=== PATIENT | male | born 1945 | race Caucasian/White ===

== ENCOUNTER 2019-02-03 11:47 | Outpatient (CLI) | payer MEDICARE, OTHER ==
[~2019-02-03 11:47] MED LIST: Gadobenate Dimeglumine 529 MG/1 ML (20ML VIAL) ONE
--- NOTE | 2019-02-03 13:17 | MRI ---
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 TECHNIQUE: Multiplanar, multisequence pre and postcontrast enhanced MRI images of brain and IACs obt ained. FINDINGS: MRI images of brain demonstrate cortical atrophy and deep white matter ischemic changes. No evidence of acute intracranial masses, hemorrhages, or strokes seen. 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 No evidence of abnormal areas of intracranial enhancement seen. The internal auditory canals are unremarkable. No evidence of asymmetric enhancement seen. IMPRESSION: Deep white matter ischemic changes. Transcribed Date/Time: 02/03/2019 2:07 PM
== END 2019-02-03 11:48 | disposition home or self-care (01) ==
LOC: SCSMRI 11:47
PROVIDERS: ATTEND Specialist
DX: H90.5 Unspecified sensorineural hearing loss (principal); I67.82 Cerebral ischemia
CPT/HCPCS: 36415; 70553; 80048; A9577

== ENCOUNTER 2019-04-24 10:12 | Outpatient (CLI) | payer MEDICARE, OTHER ==
[~2019-04-24 10:12] MED LIST changes: -Gadobenate Dimeglumine 529 MG/1 ML (20ML VIAL) ONE; +Iopamidol 300 61% 100 ML VIAL FS ONE
--- NOTE | 2019-04-24 11:54 | CT ---
CT abdomen and pelvis with oral and IV contrast: HISTORY: Lower abdominal pain, back pain and groin pain. COMPARISON: None FINDINGS: There is a calcified granuloma in the right lung base. The patient is post cholecystectomy. The liver , pancreas, adrenal glands and right kidney are normal. A 17 mm cortical cyst is seen arising from the superior pole of the left kidney. The spleen measures 13.2 cm in length. No free air, free fluid or lymphadenopathy seen in the abdomen or pelvis. There are vascular calcifi cations without evidence of aneurysmal dilatation of the abdominal aorta. Degenerative changes are present in the spine. A normal-appearing appendix is present. Some of the small bowel loops in the left hemiabdomen are mil dly dilated. There is sigmoid diverticulosis without evidence of diverticulitis. A small fat-containing left inguinal hernia is present. IMPRESSION: 1. Left renal cyst 2. Borderline splenomegaly 3. Sigmoid diverticulosis. 4. Probable mild/partial small bowel obstruction. A small bowel series of be helpful.
== END 2019-04-24 10:13 | disposition home or self-care (01) ==
LOC: SCSCT 10:12
PROVIDERS: ATTEND Family Medicine
DX: R10.30 Lower abdominal pain, unspecified (principal); N28.1 Cyst of kidney, acquired; R16.1 Splenomegaly, not elsewhere classified; K57.30 Diverticulosis of large intestine without perforation or abscess without bleeding
CPT/HCPCS: 74177; Q9967

== ENCOUNTER 2019-04-25 07:21 | Outpatient (CLI) | payer MEDICARE, OTHER ==
--- NOTE | 2019-04-25 07:53 | ULT ---
Splenic sonogram HISTORY: Splenomegaly. FINDINGS: Spleen has a homogeneous echotexture. It measures 12.6 cm length by 6.0 cm width by 6.2 cm depth. No free fluid in the left upper quadrant. IMPRESSION: Mild splenomegaly. No focal abnormalities are demonstrated.
== END 2019-04-25 07:22 | disposition home or self-care (01) ==
LOC: SCSULT 07:21
PROVIDERS: ATTEND Family Medicine
DX: R16.1 Splenomegaly, not elsewhere classified (principal)
CPT/HCPCS: 74018; 76705

== ENCOUNTER 2019-04-25 08:47 | Outpatient (CLI) | payer MEDICARE, OTHER ==
--- NOTE | 2019-04-25 10:25 | RAD ---
XR Abdomen 1 View/KUB 1 view abdomen series CLINICAL INDICATION: Lower abdominal pain, partial obstruction FINDINGS: Lung basesreveal mild volume loss. No free air. Moderate retained fecal material is seen within colon. There is contrast throughout the course of the colon, which demonstrates interval passage from previo us day CT exam No acute osseous pathology. IMPRESSION: Interval passage of contrast to the level of the distal colon. Therefore, no persisting f indings to indicate bowel obstruction.
== END 2019-04-25 08:48 | disposition home or self-care (01) ==
LOC: RAD 08:47
PROVIDERS: ATTEND Family Medicine
DX: K56.600 Partial intestinal obstruction, unspecified as to cause (principal)
CPT/HCPCS: 74018

== ENCOUNTER 2019-05-22 07:39 | Outpatient (CLI) | payer MEDICARE, OTHER ==
[2019-05-22] MEDS ORDERED: Gadobenate Dimeglumine 529 MG/1 ML (20ML VIAL) ONE (09:00)
--- NOTE | 2019-05-22 10:04 | MRI ---
MRI LUMBAR SPINE WITH AND WITHOUT CONTRAST: DATE: 05/22/2019 HISTORY: 73-year-old male with low back pain and lumbosacral radiculopathy. TECHNIQUE: Multiple sequences obtained in axial and sagittal planes, pre and post IV injection of gadolinium-bas ed contrast agent. FINDINGS: For the purposes of this report, it will be assumed that there are 5 lumbar-type vertebrae. Vertebral body heights are maintained. Alignment is normal. Disc spaces are maintained. Bone marrow signal is normal. There is no evidence o f abnormal enhancement or mass involving the visualized portions of the intramedullary, extramedullary-intradural, extradural, intraosseous, or perivertebral, spaces. Conus medullaris termi nates at L1-2. The cauda equina is arranged in a symmetrical, normal distribution throughout the thecal sac. T12-L1:Normal L1-2:Normal L2-3:Normal L3-4:Moderate left facet DJD. Mild right facet DJD. Mild to moderate left neural foraminal stenosis. No right neural foraminal stenosis. No central stenosis. L4-5:Moderate bilateral neural foraminal stenosis. Mild bilateral facet DJD. No central stenosis. L5-S1:Mild to moderate right facet DJD. Mild left facet DJD. Mild bilateral neural foraminal stenosis . No central stenosis. IMPRESSION: 1) no central spinal canal stenosis and no high-grade degenerative disc disease, at any level. 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 Moderate on the left at L3-4. 3) neural foraminal stenosis at several levels, mostly low-grade.
== END 2019-05-22 07:40 | disposition home or self-care (01) ==
LOC: SCSMRI 07:39
PROVIDERS: ATTEND Family Medicine
DX: M47.27 Other spondylosis with radiculopathy, lumbosacral region (principal); M47.816 Spondylosis without myelopathy or radiculopathy, lumbar region; M48.061 Spinal stenosis, lumbar region without neurogenic claudication; M48.07 Spinal stenosis, lumbosacral region
CPT/HCPCS: 72158; 82565

== ENCOUNTER 2019-07-22 07:40 | Outpatient (CLI) | payer MEDICARE, OTHER ==
[2019-07-22 08:20] LABS: Estimated GFR-MDRD - POC Greater than 90
--- NOTE | 2019-07-22 09:38 | CT ---
CT ANGIOGRAM HEAD CT ANGIOGRAM NECK: DATE: 07/22/2019. COMPARISON: None. HISTORY: Random spells of altered awareness, transient alteration of awareness. TECHNIQUE: Axial CT imaging obtained at 5 mm intervals from vertex through skull base without contrast. Then, ax ial CT imaging at 1.5 mm intervals from the lung apices through the vertex with IV contrast using CT angiogram protocol. Coronal and sagittal 3-D reformatted imaging obtained. FINDINGS: Noncontrast enhanced head CT demonstrates no intracranial hemorrhage, midline shift, mass effect, or ventricular enlargement. Periventricular and deep white matter hypodensity noted, evidence of small vessel disease. Imaged paranasal sinuses and mastoid air cells are well aerated. No acute osseous abnormality. The imaged lung apices demonstrate increased linear interstitial density bilaterally, right greater t saini left. Coronary arterial calcification is noted. There is mild atherosclerotic calcification of the aortic arch and the visualized descending thoracic aorta. The retroantral fat, parapharyngeal fat, parotid glands, and submandibular glands appear grossly unre markable bilaterally. The thyroid gland, hyoid bone, epiglottis and preepiglottic fat, and level of the glottis appear jesus sly unremarkable. The origin of the innominate artery, left subclavian artery, left common carotid artery, right subcla vian artery, and right common carotid artery demonstrate no hemodynamically significant stenosis. The vertebral artery is patent bilaterally. The right vertebral artery is dominant. The proximal aspe ct of the left vertebral artery is partially obscured by venous contrast. No hemodynamically significant stenosis is seen involving either common carotid artery on the basis o f NASCET criteria. There is calcified plaque at the origin of the right internal carotid artery causing approximately 40% stenosis on the basis of NASCET criteria. There is a patent slightly deformed arterial stent within the proximal aspect of the left internal ca rotid artery with prominent surrounding partially calcified plaque. There is intrastent stenosis, best seen on axial image 147, estimated in the 60% range on the basis of NASCET criteria. The basilar artery is patent. There appears to be a origin of the right posterior cerebral olu ry. No high-grade stenosis, vascular occlusion, or saccular aneurysm is seen involving the posterior circulation. The A1 segment and M1 segment is patent bilaterally. The MCA bifurcation and the ICA bifurcation is u nremarkable bilaterally. Distal MCA and LUCIEN branches appear intact. No saccular aneurysm, central arterial occlusion, or high-grade stenosis is seen involving the anterior circulation on either side. Review of the osseous structures demonstrates no worrisome lytic or blastic bone lesion. Anterior discectomy and fusion hardware is noted within the lower cervical spine. There is multilevel cervical spine facet and uncovertebral osteophyte formation. No lymphadenopathy is noted within the neck. IMPRESSION: Unremarkable noncontrast enhanced head CT. 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 Additional incidental findings are noted, including coronary arterial calcification. Transcribed Date/Time: 07/22/2019 9:59 AM
== END 2019-07-22 07:41 | disposition home or self-care (01) ==
LOC: TBSIIMAG 07:40
DX: R40.4 Transient alteration of awareness (principal); I65.23 Occlusion and stenosis of bilateral carotid arteries; I25.10 Atherosclerotic heart disease of native coronary artery without angina pectoris
CPT/HCPCS: 70496; 70498; 82565

== ENCOUNTER 2019-10-14 16:48 | Outpatient (CLI) | payer MEDICARE, OTHER ==
--- NOTE | 2019-10-14 17:11 | RAD ---
Exam: XR Shoulder Rt 3 View STANDARD HISTORY: Acute pain right shoulder. Fall 3 days ago. COMPARISON: None FINDINGS: There is mild acromioclavicular joint osteoarthritis. Postsurgical changes lower cervical spine are seen. Mild degenerative changes are seen in the visuali zed thoracic as well as cervical spine. No acute fracture, dislocation, or other acute osseous abnormality is identified. Vascular calcifications are seen in the thoracic aorta IMPRESSION: No acute osseous abnormality is identified.
== END 2019-10-14 16:49 | disposition home or self-care (01) ==
LOC: SCSRAD 16:48
PROVIDERS: ATTEND Family Medicine
DX: M25.511 Pain in right shoulder (principal)

== ENCOUNTER 2019-12-19 09:22 | Outpatient (CLI) | payer MEDICARE, OTHER ==
--- NOTE | 2019-12-19 14:57 | NM ---
NUCLEAR MEDICINE BRAIN IMAGING: Date: 12/19/2019 HISTORY: Transient alteration of awareness. TECHNIQUE: A DaTscan with axial tomographic measures of the brain obtained 3 hours following the intravenous adm inistration of 4.5 mCi Iodine-123 Ioflupane. The patient was pretreated with 130 mg of potassium iodi de orally 1 hour prior to the injection. FINDINGS: There is mild defect in the left posterior putamen. The right striatum appears normal. 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 POS: [facility]
== END 2019-12-19 09:23 | disposition home or self-care (01) ==
LOC: NM 09:22
PROVIDERS: ATTEND Psychiatry & Neurology Neurology
DX: R40.4 Transient alteration of awareness (principal); G25.9 Extrapyramidal and movement disorder, unspecified
CPT/HCPCS: 78803; A9584

== ENCOUNTER 2021-03-29 10:20 | Outpatient (CLI) | payer MEDICARE, OTHER | END 2021-03-29 10:21 | disposition home or self-care (01) | LOC: SCSMRI 10:20 | PROVIDERS: ATTEND Orthopaedic Surgery | DX: S46.011A Strain of muscle(s) and tendon(s) of the rotator cuff of right shoulder, initial encounter (principal); M19.011 Primary osteoarthritis, right shoulder ==

== ENCOUNTER 2021-05-09 11:15 | Inpatient (IN) | payer MEDICARE, OTHER ==
[2021-05-12] MEDS ORDERED: Tranexamic Acid 1,000 MG/10 ML VIAL ONE (05:56)
[2021-05-12] MEDS ORDERED: Sodium Chloride 0.9% 100 ML ONE (05:56)
[2021-05-12] MEDS ORDERED: Vancomycin 1.5 GRAM/300 ML BAG 1.5 GM in Premix Bag 1 BAG IVPB SCH (06:00)
[2021-05-12] MEDS ORDERED: Fentanyl 100 MCG/2 ML VIAL ONE ×2 (06:27→07:06)
[2021-05-12] MEDS ORDERED: Lidocaine 2% Jelly 5 ML TUBE ONE (06:27)
[2021-05-12] MEDS ORDERED: Midazolam HCl 2 mg/2 ml Vial ONE (07:06)
[2021-05-12] MEDS ORDERED: Ropivacaine 0.5% HCl/PF (150 MG/30 ML VIAL) ONE (07:42)
[2021-05-12] MEDS ORDERED: Ondansetron PF 4 MG/2 ML Vial ONE (07:42)
[2021-05-12] MEDS ORDERED: Glycopyrrolate 0.2 MG/ML 5 ML SYRINGE ONE (07:42)
[2021-05-12] MEDS ORDERED: Ropivacaine 2% HCl/PF (20 MG/10 ML VIAL) ONE (07:42)
[2021-05-12] MEDS ORDERED: Rocuronium Bromide 10 MG/ML (10ML VIAL) ONE (07:42)
[2021-05-12] MEDS ORDERED: PROPOFOL 200 MG/20 ML VIAL ONE (07:42)
[2021-05-12] MEDS ORDERED: ePHEDrine 50 MG/ML VIAL ONE (07:42)
[2021-05-12] MEDS ORDERED: PHENYLEPHRINE-NS 100 MCG/ML 10 ML SYRINGE ONE (07:42)
[2021-05-12] MEDS ORDERED: Phenylephrine 10 MG/ML VIAL ONE (08:00)
[2021-05-12] MEDS ORDERED: HYDROcodone/Acetaminophen 5/325 mg Tablet PO PRN ×2 (08:15)
[2021-05-12] MEDS ORDERED: traMADol HCl 50 MG TAB PO PRN ×4 (08:15→10:22)
[2021-05-12] MEDS ORDERED: Ondansetron PF 4 MG/2 ML Vial IVP PRN ×2 (08:15→10:22)
[2021-05-12] MEDS ORDERED: Promethazine HCl 25 MG/ML VIAL IM PRN ×2 (08:15→11:46)
[2021-05-12] MEDS ORDERED: Ropivacaine 0.2% 550 ML 550 ML NERVE BLCK SCH (08:15)
[2021-05-12] MEDS ORDERED: Zolpidem Tartrate 5 MG TAB PO PRN ×2 (08:15→10:22)
[2021-05-12] MEDS ORDERED: Bisacodyl 10 MG SUPP PR PRN (10:22)
[2021-05-12] MEDS ORDERED: Methocarbamol 1 GM/10 ML VIAL SLOW IVP PRN (10:22)
[2021-05-12] MEDS ORDERED: Milk Of Magnesia 30 ML UDCUP PO PRN (10:22)
[2021-05-12] MEDS ORDERED: HYDROcodone/Acetaminophen 10/325 mg Tablet PO PRN ×2 (10:22)
[2021-05-12] MEDS ORDERED: Methocarbamol 500 MG TAB PO PRN (10:22)
[2021-05-12] MEDS ORDERED: diphenhydrAMINE 50 MG CAP PO PRN (10:22)
[2021-05-12] MEDS ORDERED: Acetaminophen 325 MG TAB PO PRN (10:22)
[2021-05-12] MEDS ORDERED: Ondansetron ODT 4 MG TAB PO PRN (10:22)
[2021-05-12] MEDS ORDERED: Promethazine HCl 25 MG/ML VIAL IVPB PRN (11:46)
[2021-05-12] MEDS ORDERED: Ondansetron HCl/PF 4 MG/2 ML Vial IVP PRN (11:46)
[2021-05-12] MEDS: Sodium Chloride 0.9% 1,000 ML IV SCH (13:50)
[2021-05-12] MEDS: CEFAZOLIN 2 GM in Premix Bag 1 BAG IVPB SCH ×2 (15:25→22:28)
[2021-05-12 17:22] VITALS: BMI 29.6
[2021-05-12] MEDS ORDERED: Vancomycin HCl 1.5 GM in Sodium Chloride 0.9% 250 ML 300 ML IVPB SCH (18:00)
[2021-05-12] MEDS ORDERED: Vancomycin 1.5 GRAM/300 ML BAG 1.5 GM in Premix Bag 300 BAG IVPB SCH (18:03)
[2021-05-12] MEDS: metFORMIN 500 MG TAB PO SCH (18:35)
[2021-05-12] MEDS: Mometasone 100 MCG/PUFF (1 INHALER) INH SCH (18:58)
[2021-05-12] MEDS: Pregabalin 50 MG CAP PO SCH (20:42)
[2021-05-12] MEDS: Vit A,C & E/Lutein/Minerals Tablet PO SCH (20:42)
[2021-05-12] MEDS: Donepezil HCl 10 MG TAB PO SCH (20:42)
[2021-05-12] MEDS: Atorvastatin Calcium 40 MG TAB PO SCH (20:43)
[2021-05-12] MEDS: Lisinopril 10 MG TAB PO SCH (20:43)
[2021-05-12] MEDS: Famotidine 20 MG TAB PO SCH (20:43)
[2021-05-12] MEDS: Lantus 1000 UNITS/10 ML VIAL SC SCH (22:32)
[2021-05-12] MEDS: Acetaminophen 500 MG TAB PO PRN (23:27)
[2021-05-13] MEDS: Sodium Chloride 0.9% 1,000 ML IV SCH ×2 (02:00→17:19)
[2021-05-13] MEDS ORDERED: Ferrous Sulfate 325 MG TAB PO SCH (08:00)
[2021-05-13] MEDS: Vit A,C & E/Lutein/Minerals Tablet PO SCH ×2 (09:23→21:52)
[2021-05-13] MEDS: metFORMIN 500 MG TAB PO SCH ×2 (09:23→16:53)
[2021-05-13] MEDS: Clopidogrel Bisulfate 75 MG TAB PO SCH (09:23)
[2021-05-13] MEDS: Famotidine 20 MG TAB PO SCH ×2 (09:23→21:50)
[2021-05-13] MEDS: Cyanocobalamin (Vitamin B-12) 1,000 MCG TAB PO SCH (09:23)
[2021-05-13] MEDS: Cholecalciferol 1,000 UNITS (25 MCG) TAB PO SCH (09:24)
[2021-05-13] MEDS: Furosemide 20 MG TAB PO SCH (09:24)
[2021-05-13] MEDS: Lantus 1000 UNITS/10 ML VIAL SC SCH ×2 (09:24→21:50)
[2021-05-13] MEDS: Empagliflozin 10 MG TAB PO SCH (09:28)
[2021-05-13] MEDS: Acetaminophen 500 MG TAB PO PRN (09:30)
[2021-05-13] MEDS ORDERED: Ibuprofen 200 MG TAB PO PRN (10:03)
[2021-05-13] MEDS ORDERED: Ibuprofen 200 MG TAB PO SCH (10:15)
[2021-05-13] MEDS: Mometasone 100 MCG/PUFF (1 INHALER) INH SCH ×2 (11:51→18:41)
[2021-05-13] MEDS: Donepezil HCl 10 MG TAB PO SCH (21:50)
[2021-05-13] MEDS: Atorvastatin Calcium 40 MG TAB PO SCH (21:50)
[2021-05-13] MEDS: Pregabalin 50 MG CAP PO SCH (21:51)
[2021-05-13] MEDS: Lisinopril 10 MG TAB PO SCH (21:51)
[2021-05-14] MEDS: Acetaminophen 500 MG TAB PO PRN ×2 (03:44→13:42)
[2021-05-14] MEDS: Mometasone 100 MCG/PUFF (1 INHALER) INH SCH ×2 (06:51→19:28)
[2021-05-14] MEDS: Empagliflozin 10 MG TAB PO SCH (08:43)
[2021-05-14] MEDS: metFORMIN 500 MG TAB PO SCH ×2 (08:43→16:18)
[2021-05-14] MEDS: Famotidine 20 MG TAB PO SCH ×2 (08:44→22:06)
[2021-05-14] MEDS: Clopidogrel Bisulfate 75 MG TAB PO SCH (08:44)
[2021-05-14] MEDS: Furosemide 20 MG TAB PO SCH (08:44)
[2021-05-14] MEDS: Vit A,C & E/Lutein/Minerals Tablet PO SCH ×2 (08:44→22:06)
[2021-05-14] MEDS: Cholecalciferol 1,000 UNITS (25 MCG) TAB PO SCH (08:44)
[2021-05-14] MEDS: Cyanocobalamin (Vitamin B-12) 1,000 MCG TAB PO SCH (08:44)
[2021-05-14] MEDS: Sodium Chloride 0.9% 1,000 ML IV SCH (08:46)
[2021-05-14] MEDS: Lantus 1000 UNITS/10 ML VIAL SC SCH ×2 (08:47→22:05)
[2021-05-14] MEDS: Carvedilol 6.25 MG TAB PO SCH (16:18)
[2021-05-14] MEDS: Pregabalin 50 MG CAP PO SCH (22:05)
[2021-05-14] MEDS: Lisinopril 10 MG TAB PO SCH (22:06)
[2021-05-14] MEDS: Atorvastatin Calcium 40 MG TAB PO SCH (22:06)
[2021-05-14] MEDS: Donepezil HCl 10 MG TAB PO SCH (22:06)
[2021-05-15] MEDS: Sodium Chloride 0.9% 1,000 ML IV SCH ×2 (01:10→14:04)
[2021-05-15] MEDS: Mometasone 100 MCG/PUFF (1 INHALER) INH SCH (06:45)
[2021-05-15] MEDS: Cholecalciferol 1,000 UNITS (25 MCG) TAB PO SCH (08:01)
[2021-05-15] MEDS: Vit A,C & E/Lutein/Minerals Tablet PO SCH (08:01)
[2021-05-15] MEDS: Clopidogrel Bisulfate 75 MG TAB PO SCH (08:01)
[2021-05-15] MEDS: Famotidine 20 MG TAB PO SCH (08:01)
[2021-05-15] MEDS: metFORMIN 500 MG TAB PO SCH (08:02)
[2021-05-15] MEDS: Carvedilol 6.25 MG TAB PO SCH (08:02)
[2021-05-15] MEDS: Cyanocobalamin (Vitamin B-12) 1,000 MCG TAB PO SCH (08:02)
[2021-05-15] MEDS: Furosemide 20 MG TAB PO SCH (08:02)
[2021-05-15] MEDS: Lantus 1000 UNITS/10 ML VIAL SC SCH (08:11)
[2021-05-15] MEDS: Loperamide HCl 2 MG CAP PO PRN ×2 (09:42→11:53)
[2021-05-15 12:22] VITALS: BP 137/75; TEMP 98.4
[2021-05-15] MEDS: Empagliflozin 10 MG TAB PO SCH (13:50)
== END 2021-05-15 15:00 | disposition home health service (06) | DRG 483 ==
LOC: SURG A 05-12 05:37 → EDSTATUS 05-12 11:15 → SURG A 05-12 13:23
PROVIDERS: ADMIT Orthopaedic Surgery; ATTEND Orthopaedic Surgery
PROC: 0RRJ0JZ Replacement of Right Shoulder Joint with Synthetic Substitute, Open Approach (ICD-10-PCS; principal; 2021-05-12)
PROC: 0RPJ0JZ Removal of Synthetic Substitute from Right Shoulder Joint, Open Approach (ICD-10-PCS; 2021-05-12)
DX: M75.121 Complete rotator cuff tear or rupture of right shoulder, not specified as traumatic (principal); Z20.822 Contact with and (suspected) exposure to COVID-19; I10 Essential (primary) hypertension; E78.5 Hyperlipidemia, unspecified; I25.10 Atherosclerotic heart disease of native coronary artery without angina pectoris; G47.30 Sleep apnea, unspecified; Z99.89 Dependence on other enabling machines and devices; G20 Parkinson's disease; F02.80 Dementia in other diseases classified elsewhere, unspecified severity, without behavioral disturbance, psychotic disturbance, mood disturbance, and anxiety; F41.9 Anxiety disorder, unspecified; E11.9 Type 2 diabetes mellitus without complications; Z95.5 Presence of coronary angioplasty implant and graft; Z87.891 Personal history of nicotine dependence; Z79.51 Long term (current) use of inhaled steroids; Z79.4 Long term (current) use of insulin; Z79.899 Other long term (current) drug therapy
CPT/HCPCS: 36416; 94640; A4306; C1713; C1776; J0690; J1815; J2250; J2370; J2405; J2704; J2795; J3010; J3370; J3490; J7620